=== PATIENT | female | born 1980 | race Caucasian/White ===

== ENCOUNTER 2016-05-02 16:55 | Emergency (ER) | payer SELFPAY ==
--- NOTE | 2016-05-02 17:11 | ER Document Report ---
ED Medical Screen (RME) - General Stated Complaint: CHEST PAIN Time seen by provider: 17:08 Mode of Arrival: Ambulatory Information source: Patient Notes: 36 yo smoker nondiabetic and nonhypertensive non-hyperlipidemic female c/o sharp retrosternal chest pain when she takes a deep breath and it feels like her throat is not it up. Similar symptoms 2 weeks ago but it lasted only one hour. Today the chest pain has been intermittent since 0700, each episode of 5- 10 minutes. Exertion and deep breath makes the pain worse. No pain now. Father had PA in mid 40s. TRAVEL OUTSIDE OF THE [place] IN LAST 30 DAYS: No Physical Exam - Vital signs Vitals: Temp Pulse Resp BP Pulse Ox 97.5 F 83 18 152/94 H 99 05/02/16 17:03 05/02/16 17:03 05/02/16 17:03 05/02/16 17:03 05/02/16 17:03 Course - Vital Signs Vital signs: Temp Pulse Resp BP Pulse Ox 97.5 F 83 18 152/94 H 99 05/02/16 17:03 05/02/16 17:03 05/02/16 17:03 05/02/16 17:03 05/02/16 17:03
[2016-05-02] MEDS ORDERED: ASPIRIN 81 MG TABLET, CHEWABLE PO ONE (17:21)
[2016-05-02 18:00] LABS: ABSOLUTE EOSINOPHILS # (AUTO) 0.1 10^3/uL (0.0-0.6); ABSOLUTE LYMPHOCYTES (AUTO) 3.1 10^3/uL (0.5-4.7); ABSOLUTE MONOCYTES (AUTO) 0.8 10^3/uL (0.1-1.4); ABSOLUTE NEUT (AUTO) 9.4 10^3/uL (1.7-8.2); BASOPHILS % (AUTO) 0.3 % (0-2); EOSINOPHILS % (AUTO) 0.5 % (0-6); HEMATOCRIT 41.7 % (36.0-47.0); HEMOGLOBIN 14.4 g/dL (12.0-15.5); HGB HCT DIFFERENCE 1.5; LYMPHOCYTES % (AUTO) 22.9 % (13-45); MEAN CORPUSCULAR HEMOGLOBIN 31.1 pg (27.0-33.4); MEAN CORPUSCULAR HGB CONC 34.5 g/dL (32.0-36.0); MEAN CORPUSCULAR VOLUME 90 fl (80-97); MONOCYTES % (AUTO) 6.3 % (3-13); RED BLOOD COUNT 4.62 10^6/uL (3.72-5.28); RED CELL DISTRIBUTION WIDTH 12.8 % (11.5-14.0); WHITE BLOOD COUNT 13.4 10^3/uL (4.0-10.5)
--- NOTE | 2016-05-02 18:10 | ER Document Report ---
ED Cardiac - General Chief Complaint: Chest Pain Stated Complaint: CHEST PAIN Time seen by provider: 18:06 Mode of Arrival: Ambulatory Notes: This is a 36-year-old female with a [id number] history that presents today with sternal chest pain. She stated that started at 0700 and went away 10 minutes ago. She states she woke up with the pain sudden onset. Denies nausea vomiting fever or shortness of breath diaphoresis. Admits to some chills. Pain radiates to right arm numbness. She characterizes chest pain as sharp 8 out of 10 worse with movement and breathing. Denies prior myocardial infarction or CVA. 2 weeks ago she states that she has had similar symptoms lasted two hours and went away on its own. She was doing housework at the time. She currently denies chest pain. TRAVEL OUTSIDE OF THE [place] IN LAST 30 DAYS: No - Related Data Allergies/Adverse Reactions: No Known Allergies Allergy (Unverified 05/02/16 17:23) Past Medical History - General Information source: Patient - Social History Smoking Status: Current Every Day Smoker Family History: None Patient has suicidal ideation: No Patient has homicidal ideation: No Review of Systems - Review of Systems Constitutional: denies: Chills, Fever EENT: denies: Blurred vision Cardiovascular: See HPI Respiratory: denies: Cough Gastrointestinal: denies: Abdominal pain, Diarrhea Musculoskeletal: denies: Back pain Physical Exam - Vital signs Vitals: Temp Pulse Resp BP Pulse Ox 97.5 F 83 18 152/94 H 99 05/02/16 17:03 05/02/16 17:03 05/02/16 17:03 05/02/16 17:03 05/02/16 17:03 - General General appearance: Appears well In distress: None - HEENT Head: Normocephalic, Atraumatic Eyes: Normal - Respiratory Respiratory status: No respiratory distress Chest status: Tender - Patient had reproducible pain mid sternum to mild palpation. Breath sounds: Normal. No: Rales, Rhonchi, Stridor, Wheezing - Cardiovascular Rhythm: Regular Heart sounds: Normal auscultation - Abdominal Inspection: Normal Distension: No distension Tenderness: Nontender - Extremities General upper extremity: Normal inspection General lower extremity: Normal inspection - Neurological Cognition: Normal. No: Confused - Psychological Associated symptoms: Normal affect, Normal mood - Skin Skin Temperature: Warm Skin Moisture: Dry Skin Color: Normal Course - Re-evaluation Re-evalutation: 05/02/16 19:40 Dr. Stevens at [facility] was contacted. He advised to put the patient on Plavix 250 mg by mouth now. Patient's vital signs are stable she denies chest pain shortness of breath nausea vomiting. She states that she feels fine. 05/02/16 20:08 Blood pressure is 130/82 pulse of 73 O2 sat on nasal cannula 98%. Currently asymptomatic denies all pain. 05/02/16 20:48 Transport has arrived. Blood pressure is 138/96 pulse of 72. Patient speaking in full sentences Patient denies all symptoms. 05/02/16 22:22 Dr. Stevens advised me to monitor the patient since her troponin levels were downtrending. Troponins were significantly elevated on first draw and on second draw was much lower. Dr. Costa did not believe that the first troponin level was accurate. By the time of this conversation with Dr. Stevens the patient had already been transported out of the hospital. At time of transport the patient was asymptomatic. She stated that she felt good and had no pain. - Vital Signs Vital signs: Temp Pulse Resp BP Pulse Ox 97.5 F 83 21 H 149/93 H 99 05/02/16 17:03 05/02/16 17:03 05/02/16 20:00 05/02/16 20:00 05/02/16 20:00 - Laboratory Result Diagrams: 05/02/16 17:47 05/02/16 17:47 Laboratory results interpreted by me: 05/02/16 05/02/16 05/02/16 17:47 17:47 17:47 WBC 13.4 H Absolute Neutrophils 9.4 H AST 42 H CK-MB (CK-2) 9.71 H Discharge - Discharge Clinical Impression: Non-ST elevation (NSTEMI) myocardial infarction Condition: Stable Disposition: [facility] Admitting Provider: Dr. Stevens
[2016-05-02 18:22] LABS: ALANINE AMINOTRANSFERASE 22 U/L (9-52); ALBUMIN 3.9 g/dL (3.5-5.0); ALKALINE PHOSPHATASE 96 U/L (38-126); ANION GAP 11 (5-19); ASPARTATE AMINO TRANSFERASE 42 U/L (14-36); BILIRUBIN,TOTAL 0.3 mg/dL (0.2-1.3); BLOOD UREA NITROGEN 8 mg/dL (7-20); CALCIUM 9.6 mg/dL (8.4-10.2); CARBON DIOXIDE 25 mmol/L (22-30); CHLORIDE 105 mmol/L (98-107); CREATINE KINASE 110 U/L (30-135); CREATININE RESULT 0.64 mg/dL (0.52-1.25); GLUCOSE 93 mg/dL (75-110); SODIUM 140.7 mmol/L (137-145); TOTAL PROTEIN 7.1 g/dL (6.3-8.2)
[2016-05-02 18:32] LABS: CREATINE KINASE MB 9.71 ng/mL (<4.55)
[2016-05-02 18:37] LABS: TROPONIN I 2.59 ng/mL
[2016-05-02] MEDS ORDERED: CLOPIDOGREL BISULFATE 300 MG TABLET PO ONE (19:25)
[2016-05-02 19:31] VITALS: BP 149/93
--- NOTE | 2016-05-03 13:43 | EKG REPORT ---
SEVERITY:- ABNORMAL ECG - SINUS RHYTHM NONSPECIFIC T ABNORMALITIES, LATERAL LEADS : Confirmed by: Shaila Chang MD 03-May-2016 13:41:52
== END 2016-05-02 20:00 | disposition short-term general hospital (02) ==
LOC: ER 16:55
DX: I21.4 Non-ST elevation (NSTEMI) myocardial infarction (principal); R07.9 Chest pain, unspecified; R68.83 Chills (without fever); F17.200 Nicotine dependence, unspecified, uncomplicated; Z79.01 Long term (current) use of anticoagulants
CPT/HCPCS: 93005; 99285; 36415; 82553; 82550; 85025; 80053; 84484; 71010; 93010; J3490

== ENCOUNTER → 2019-09-17 | Outpatient (CLI) | payer SELFPAY ==
[2019-09-17 09:59] LABS: ALBUMIN 4.5 g/dL (3.5-5.0); ALKALINE PHOSPHATASE 94 U/L (38-126); ANION GAP 9 (5-19); ASPARTATE AMINO TRANSFERASE 25 U/L (14-36); BILIRUBIN,TOTAL 0.5 mg/dL (0.2-1.3); BLOOD UREA NITROGEN 12 mg/dL (7-20); CALCIUM 9.8 mg/dL (8.4-10.2); CARBON DIOXIDE 23 mmol/L (22-30); CHLORIDE 105 mmol/L (98-107); CHOLESTEROL 243.01 mg/dL (0-200); GLUCOSE 99 mg/dL (75-110); POTASSIUM 4.7 mmol/L (3.6-5.0); TRIGLYCERIDES 208 mg/dL (<150)
[2019-09-17 10:12] LABS: DIRECT LDL 179 mg/dL (<100)
[2019-09-17 10:15] LABS: VLDL CHOLESTEROL 41.6 mg/dL (10-31)
[2019-09-17 10:19] LABS: CREATINE KINASE MB 0.49 ng/mL (<4.55)
[2019-09-17 10:21] LABS: TROPONIN I < 0.012 ng/mL
--- NOTE | 2019-09-17 12:06 | RADIOLOGY REPORT (SQ) ---
EXAM DESCRIPTION: CHEST PA/LATERAL IMAGES COMPLETED DATE/TIME: 09/17/2019 9:25 am REASON FOR STUDY: NICOTINE DEPENDENCE, CIGARETTES, UNCOMPLICATED COMPARISON: AP view of the chest from 05/02/2016. EXAM PARAMETERS: NUMBER OF VIEWS: Two views. TECHNIQUE: PA and lateral views of the chest were obtained. RADIATION DOSE: NA. LIMITATIONS: None. FINDINGS: LUNGS AND PLEURA: No consolidation, pleural effusion or pneumothorax. MEDIASTINUM AND HILAR STRUCTURES: No mediastinal or hilar contour abnormality. HEART AND VASCULAR STRUCTURES: The cardiac silhouette and pulmonary vasculature are within normal molina its. BONES: No acute findings. HARDWARE: None in the chest. OTHER: No other finding. IMPRESSION: No acute cardiopulmonary process. TECHNICAL DOCUMENTATION: JOB ID: [id number] 2010 [employer]- All Rights Reserved Reading location - IP/workstation name: [email or web address]
--- NOTE | 2019-09-17 19:36 | EKG REPORT ---
SEVERITY:- NORMAL ECG - SINUS RHYTHM : Confirmed by: Johnson Muñiz MD 17-Sep-2019 19:35:31
== END ==
LOC: OD 08:47
PROVIDERS: ATTEND Nurse Practitioner Family
DX: E78.2 Mixed hyperlipidemia (principal); I10 Essential (primary) hypertension; I20.9 Angina pectoris, unspecified; F17.210 Nicotine dependence, cigarettes, uncomplicated
CPT/HCPCS: 36415; 71046; 80053; 80061; 82553; 84443; 84484; 93005; 93010

== ENCOUNTER 2019-11-18 16:24 | Emergency (ER) | payer MEDICAID ==
[2019-11-18] MEDS ORDERED: ONDANSETRON 4 MG TAB.RAPDIS PO ONE (18:22)
--- NOTE | 2019-11-18 18:27 | ER Document Report ---
ED Medical Screen (RME) - General Chief Complaint: Abdominal Pain Stated Complaint: ABDOMINAL PAIN Time Seen by Provider: 11/18/19 18:15 Primary Care Provider: NEIL JAMES NP [Primary Care Provider] - Follow up as needed Notes: Patient is a 39-year-old female who presents the emergency department with the chief complaint of abdominal pain. Patient states that her pain started yesterday. States that it is in her mid upper abdomen. Patient ended up vomiting once. Patient denies any previous abdominal surgeries. Denies any vaginal discharge. Denies any dysuria. Exam: Tender mid upper abdomen. I have greeted and performed a rapid initial assessment of this patient. A comprehensive ED assessment and evaluation of the patient, analysis of test results and completion of medical decision making process will be conducted by an additional ED providers. TRAVEL OUTSIDE OF THE [place] IN LAST 30 DAYS: No - Related Data Allergies/Adverse Reactions: No Known Allergies Allergy (Unverified 05/02/16 17:23) Home Medications: lisinopril, atorvostatin, metoprolol, nitro Past Medical History - Social History Frequency of alcohol use: None Drug Abuse: None Past Surgical History: Reports: Hx Section, Hx Tubal Ligation Physical Exam - Vital signs Vitals: Temp Pulse Resp BP Pulse Ox 98.3 F 79 20 137/82 H 98 11/18/19 16:42 11/18/19 16:42 11/18/19 16:42 11/18/19 16:42 11/18/19 16:42 Course - Vital Signs Vital signs: Temp Pulse Resp BP Pulse Ox 98.3 F 79 20 137/82 H 98 11/18/19 16:42 11/18/19 16:42 11/18/19 16:42 11/18/19 16:42 11/18/19 16:42 Doctor's Discharge - Discharge Referrals: NEIL JAMES NP [Primary Care Provider] - Follow up as needed
[2019-11-18 19:03] LABS: ABSOLUTE EOSINOPHILS # (AUTO) 0.1 10^3/uL (0.0-0.6); ABSOLUTE LYMPHOCYTES (AUTO) 2.8 10^3/uL (0.5-4.7); ABSOLUTE MONOCYTES (AUTO) 1.2 10^3/uL (0.1-1.4); ABSOLUTE NEUT (AUTO) 14.7 10^3/uL (1.7-8.2); BASOPHILS % (AUTO) 0.2 % (0-2); EOSINOPHILS % (AUTO) 0.5 % (0-6); HEMATOCRIT 45.2 % (36.0-47.0); HEMOGLOBIN 15.2 g/dL (12.0-15.5); MEAN CORPUSCULAR HGB CONC 33.6 g/dL (32.0-36.0); MEAN CORPUSCULAR VOLUME 92 fl (80-97); MONOCYTES % (AUTO) 6.2 % (3-13); PLATELET COUNT 425 10^3/uL (150-450); RED BLOOD COUNT 4.91 10^6/uL (3.72-5.28); RED CELL DISTRIBUTION WIDTH 13.5 % (11.5-14.0); SEGMENTED NEUTROPHILS % (AUTO) 78.1 % (42-78); TOTAL CELLS COUNTED % (AUTO) 100 %; WHITE BLOOD COUNT 18.8 10^3/uL (4.0-10.5)
[2019-11-18 19:04] LABS: APPEARANCE,URINE SLIGHTLY-CLOUDY; BILIRUBIN,URINE NEGATIVE (NEGATIVE); CALCIUM OXALATE CRYSTALS,URINE MANY /HPF; COLOR,URINE YELLOW; GLUCOSE, URINE NEGATIVE (NEGATIVE); KETONES,URINE 20 mg/dL (NEGATIVE); LEUKOCYTE ESTERASE,URINE NEGATIVE (NEGATIVE); NITRITE,URINE NEGATIVE (NEGATIVE); PROTEIN,URINE 30 mg/dL (NEGATIVE); URINE SPECIFIC GRAVITY 1.029
[2019-11-18 19:12] LABS: ALBUMIN 4.7 g/dL (3.5-5.0); ALKALINE PHOSPHATASE 114 U/L (38-126); ANION GAP 9 (5-19); ASPARTATE AMINO TRANSFERASE 19 U/L (14-36); BILIRUBIN,TOTAL 0.5 mg/dL (0.2-1.3); BLOOD UREA NITROGEN 8 mg/dL (7-20); CALCIUM 10.1 mg/dL (8.4-10.2); CARBON DIOXIDE 27 mmol/L (22-30); CHLORIDE 102 mmol/L (98-107); GLUCOSE 117 mg/dL (75-110); POTASSIUM 3.6 mmol/L (3.6-5.0); TOTAL PROTEIN 8.1 g/dL (6.3-8.2)
[2019-11-19] MEDS ORDERED: MORPHINE SULFATE 10 MG/ML INJ IV ONE ×3 (03:38→10:10)
--- NOTE | 2019-11-19 05:12 | ER Document Report ---
ED GI/ - General Mode of Arrival: Ambulatory Information source: Patient TRAVEL OUTSIDE OF THE [place] IN LAST 30 DAYS: No - Related Data Home Medications: lisinopril, atorvostatin, metoprolol, nitro <MANJEET LOPEZ - Last Filed: 11/19/19 07:56> <JAMIEJAMISON - Last Filed: 11/19/19 10:03> - General Chief Complaint: Abdominal Pain Stated Complaint: ABDOMINAL PAIN Time Seen by Provider: 11/18/19 18:15 Primary Care Provider: NEIL JAMES, [employer] [NURSE PRACTITIONER] - Follow up as needed Notes: 39-year-old female patient presents emergency department chief complaint of abdominal pain. Patient reports pain started yesterday. She reports it is in her mid to upper abdomen. She reports she has nausea and vomited one time yesterday and had two episodes of diarrhea. She has not vomited today. She denies any history of any abdominal surgeries. Denies urinary frequency or abnormal vaginal discharge. (MANJEET LOPEZ) - Related Data Allergies/Adverse Reactions: No Known Allergies Allergy (Unverified 05/02/16 17:23) Past Medical History - General Information source: Patient - Social History Smoking Status: Current Every Day Smoker Frequency of alcohol use: None Drug Abuse: None Family History: None - Past Medical History Cardiac Medical History: Reports: Hx Heart Attack - 2017 Past Surgical History: Reports: Hx Section, Hx Tubal Ligation <MANJEET LOPEZ - Last Filed: 11/19/19 07:56> Review of Systems - Review of Systems Constitutional: denies: Chills, Fever EENT: No symptoms reported Cardiovascular: No symptoms reported Gastrointestinal: Abdominal pain, Diarrhea, Nausea, Vomiting Genitourinary: No symptoms reported Female Genitourinary: No symptoms reported Musculoskeletal: No symptoms reported Skin: No symptoms reported Hematologic/Lymphatic: No symptoms reported Neurological/Psychological: No symptoms reported <MANJEET LOPEZ - Last Filed: 11/19/19 07:56> Physical Exam <MANJEET LOPEZ - Last Filed: 11/19/19 07:56> - Vital signs Vitals: Temp Pulse Resp BP Pulse Ox 98.3 F 79 20 137/82 H 98 11/18/19 16:42 11/18/19 16:42 11/18/19 16:42 11/18/19 16:42 11/18/19 16:42 - Notes Notes: PHYSICAL EXAMINATION: GENERAL: Well-appearing, well-nourished and in no acute distress. HEAD: Atraumatic, normocephalic. EYES: Pupils equal round and reactive to light, extraocular movements intact, conjunctiva are normal. ENT: Nares patent, oropharynx clear without exudates. Moist mucous membranes. NECK: Normal range of motion, supple without lymphadenopathy LUNGS: Breath sounds clear to auscultation bilaterally and equal. No wheezes rales or rhonchi. HEART: Regular rate and rhythm without murmurs ABDOMEN: Soft, nondistended abdomen. Mild tenderness in the periumbilical and epigastric region. Female : deferred Musculoskeletal: Normal range of motion, no pitting or edema. No cyanosis. NEUROLOGICAL: Cranial nerves grossly intact. Normal speech, normal gait. Normal sensory, motor exams PSYCH: Normal mood, normal affect. SKIN: Warm, Dry, normal turgor, no rashes or lesions noted. (MANJEET LOPEZ) Course - Laboratory Result Diagrams: 11/18/19 18:26 11/18/19 18:26 <MANJEET LOPEZ - Last Filed: 11/19/19 07:56> - Laboratory Result Diagrams: 11/19/19 08:41 11/18/19 18:26 - Diagnostic Test Radiology reviewed: Reports reviewed <JAMISON QUICK - Last Filed: 11/19/19 10:03> - Re-evaluation Re-evalutation: Laboratory 11/18/19 11/18/19 11/18/19 18:26 18:26 18:35 WBC 18.8 H RBC 4.91 Hgb 15.2 Hct 45.2 MCV 92 MCH 31.0 MCHC 33.6 RDW 13.5 Plt Count 425 Lymph % (Auto) 15.0 Piute % (Auto) 6.2 Eos % (Auto) 0.5 Baso % (Auto) 0.2 Absolute Neuts (auto) 14.7 H Absolute Lymphs (auto) 2.8 Absolute Monos (auto) 1.2 Absolute Eos (auto) 0.1 Absolute Basos (auto) 0.0 Seg Neutrophils % 78.1 H Sodium 138.3 Potassium 3.6 Chloride 102 Carbon Dioxide 27 Anion Gap 9 BUN 8 Creatinine 0.71 Est GFR ( Amer) > 60 Est GFR (MDRD) Non-Af > 60 Glucose 117 H Lactic Acid Calcium 10.1 Total Bilirubin 0.5 Direct Bilirubin 0.0 Neonat Total Bilirubin Not Reportable Neonat Direct Bilirubin Not Reportable Neonat Indirect Bili Not Reportable AST 19 ALT 13 Alkaline Phosphatase 114 Total Protein 8.1 Albumin 4.7 Lipase 92.1 Urine Color YELLOW Urine Appearance SLIGHTLY-CLOUDY Urine pH 5.0 Ur Specific [place] 1.029 Urine Protein 30 H Urine Glucose (UA) NEGATIVE Urine Ketones 20 H Urine Blood SMALL H Urine Nitrite NEGATIVE Urine Bilirubin NEGATIVE Urine Urobilinogen 2.0 H Ur Leukocyte Esterase NEGATIVE Urine WBC (Auto) 6 Urine RBC (Auto) 11 Squamous Epi Cells Auto 6 Calcium Oxalate Cr Auto MANY Urine Mucus (Auto) MANY Urine Ascorbic Acid NEGATIVE Urine HCG, Qual NEGATIVE 11/19/19 05:38 WBC RBC Hgb Hct MCV MCH MCHC RDW Plt Count Lymph % (Auto) Pi[place] % (Auto) Eos % (Auto) Baso % (Auto) Absolute Neuts (auto) Absolute Lymphs (auto) Absolute Monos (auto) Absolute Eos (auto) Absolute Basos (auto) Seg Neutrophils % Sodium Potassium Chloride Carbon Dioxide Anion Gap BUN Creatinine Est GFR ( Amer) Est GFR (MDRD) Non-Af Glucose Lactic Acid 0.7 Calcium Total Bilirubin Direct Bilirubin Neonat Total Bilirubin Neonat Direct Bilirubin Neonat Indirect Bili AST ALT Alkaline Phosphatase Total Protein Albumin Lipase Urine Color Urine Appearance Urine pH Ur Specific [place] Urine Protein Urine Glucose (UA) Urine Ketones Urine Blood Urine Nitrite Urine Bilirubin Urine Urobilinogen Ur Leukocyte Esterase Urine WBC (Auto) Urine RBC (Auto) Squamous Epi Cells Auto Calcium Oxalate Cr Auto Urine Mucus (Auto) Urine Ascorbic Acid Urine HCG, Qual Abdomen/Pelvis CT 11/19/19 03:39 IMPRESSION: 1. Clot or thrombus within the proximal SMA that does produce a greater than 70% stenosis of the proximal SMA and this could be thrombotic or embolic. Distally this appears to protrude into the lumen and could be unstable. Recommend vascular surgery follow-up. This case was discussed by myself by phone with Dr. Lopez on 11/19/2019 at 5:11 AM eastern time. 2. 7.7 cm simple left ovarian cyst, recommend follow-up pelvic MRI with contrast or surgical evaluation. This was also discussed by myself by phone with Dr. Lopez on the same phone call as above. Patient reevaluated. She states her pain has subsided after administration of medications here in the emergency department. I discussed the case with my att ending physician, Dr. Anand who advises obtaining a lactic acid and an EKG. Lactic acid is unremarkable. EKG shows a sinus bradycardia, rate 43, normal axis, normal intervals, no ST segment elevations or depressions to suggest ischemia. This is unchanged from previous EKG on file from 09/17/2019. Case was discussed with attending physician, Dr. Smith, he advises discussing case with vascular team at a tertiary facility. 11/19/19 07:08 Call placed to [facility], they are at capacity and will not accept any patient transfers for general adult. Call placed to [facility] at 0725, awaiting phone call back from the vascular team. Images sent via power [employer]. 11/19/19 07:56 Spoke with vascular surgeon, Dr. Keyshawn Robles at [facility]. He would like the patient to be transferred ED to ED if possible in hopes of having general surgery and vascular surgery consult on arrival. He is concerned for possible mesenteric ischemia. I spoke with the attending physician in the emergency department at [facility] on the reported line and he states that they are at capacity in their emergency department holding multiple admissions and they are unable to accept any transfers at this time. The [facility] transfer center will let vascular surgery te am know that the patient is unable to be transported there. We will continue to search for another tertiary facility that has bed availability. The patient remained stable at this time. She continues to be pain-free. Bedside handoff given to Kenrick Quick NP who will continue to attempt to get patie nt transferred. (MANJEET LOPEZ) 11/19/19 08:20 Call placed to [facility] transfer center for consultation with vascular surgeon. 11/19/19 08:[address] Howard Roland is on for vascular at [facility], discussed patient's CT imaging report. advises transfer ER to ER for further evaluation given the fact that patient also has incidental large ovarian cyst. Consulted with ER physician Dr. Golden who does agree to accept ER to ER transfer at this time, if patient requires admission, Dr. Roland does state that patient could be placed on a vascular floor as they do not currently have any medical beds. 11/19/19 09:24 Patient requesting additional pain medication, patient complains of upper abdominal tenderness at this time. Patient's vital signs continue stable, patient continues bradycardic although is on a beta-wesley. Patient updated regarding transfer status and is agreeable with transfer plan of care. 11/19/19 10:02 Transport crew is here for patient, patient stable for transfer. (JAMISON QUICK) - Vital Signs Vital signs: Temp Pulse Resp BP Pulse Ox 98.2 F 42 L 20 147/90 H 99 11/19/19 09:36 11/19/19 07:39 11/19/19 09:36 11/19/19 09:36 11/19/19 09:36 - Laboratory Laboratory results interpreted by me: 11/18/19 11/18/19 11/18/19 18:26 18:26 18:35 WBC 18.8 H Absolute Neuts (auto) 14.7 H Seg Neutrophils % 78.1 H Glucose 117 H Urine Protein 30 H Urine Ketones 20 H Urine Blood SMALL H Urine Urobilinogen 2.0 H Ur Leukocyte Esterase 11/19/19 11/19/19 08:41 08:51 WBC 15.3 H Absolute Neuts (auto) 9.5 H Seg Neutrophils % Glucose Urine Protein 30 H Urine Ketones TRACE H Urine Blood Urine Urobilinogen Ur Leukocyte Esterase SMALL H 11/19/19 10:02 Labs- All tests 24 hr 11/18/19 11/18/19 11/18/19 18:26 18:26 18:35 WBC 18.8 H RBC 4.91 Hgb 15.2 Hct 45.2 MCV 92 MCH 31.0 MCHC 33.6 RDW 13.5 Plt Count 425 Lymph % (Auto) 15.0 [place] % (Auto) 6.2 Eos % (Auto) 0.5 Baso % (Auto) 0.2 Absolute Neuts (auto) 14.7 H Absolute Lymphs (auto) 2.8 Absolute Monos (auto) 1.2 Absolute Eos (auto) 0.1 Absolute Basos (auto) 0.0 Seg Neutrophils % 78.1 H PT INR APTT Sodium 138.3 Potassium 3.6 Chloride 102 Carbon Dioxide 27 Anion Gap 9 BUN 8 Creatinine 0.71 Est GFR ( Amer) > 60 Est GFR (MDRD) Non-Af > 60 Glucose 117 H Lactic Acid Calcium 10.1 Total Bilirubin 0.5 Direct Bilirubin 0.0 Neonat Total Bilirubin Not Reportable Neonat Direct Bilirubin Not Reportable Neonat Indirect Bili Not Reportable AST 19 ALT 13 Alkaline Phosphatase 114 Total Protein 8.1 Albumin 4.7 Lipase 92.1 Urine Color YELLOW Urine Appearance SLIGHTLY-CLOUDY Urine pH 5.0 Ur Specific [place] 1.029 Urine Protein 30 H Urine Glucose (UA) NEGATIVE Urine Ketones 20 H Urine Blood SMALL H Urine Nitrite NEGATIVE Urine Bilirubin NEGATIVE Urine Urobilinogen 2.0 H Ur Leukocyte Esterase NEGATIVE Urine WBC (Auto) 6 Urine RBC (Auto) 11 Urine Bacteria (Auto) Squamous Epi Cells Auto 6 Calcium Oxalate Cr Auto MANY Urine Mucus (Auto) MANY Urine Ascorbic Acid NEGATIVE Urine HCG, Qual NEGATIVE 11/19/19 11/19/19 11/19/19 05:38 08:41 08:41 WBC 15.3 H RBC 4.52 Hgb 14.0 Hct 41.4 MCV 92 MCH 30.9 MCHC 33.8 RDW 13.3 Plt Count 348 Lymph % (Auto) 28.6 [place] % (Auto) 7.8 Eos % (Auto) 0.8 Baso % (Auto) 0.8 Absolute Neuts (auto) 9.5 H Absolute Lymphs (auto) 4.4 Absolute Monos (auto) 1.2 Absolute Eos (auto) 0.1 Absolute Basos (auto) 0.1 Seg Neutrophils % 62.0 PT 13.5 INR 1.03 APTT 25.7 Sodium Potassium Chloride Carbon Dioxide Anion Gap BUN Creatinine Est GFR ( Amer) Est GFR (MDRD) Non-Af Glucose Lactic Acid 0.7 Calcium Total Bilirubin Direct Bilirubin Neonat Total Bilirubin Neonat Direct Bilirubin Neonat Indirect Bili AST ALT Alkaline Phosphatase Total Protein Albumin Lipase Urine Color Urine Appearance Urine pH Ur Specific [place] Urine Protein Urine Glucose (UA) Urine Ketones Urine Blood Urine Nitrite Urine Bilirubin Urine Urobilinogen Ur Leukocyte Esterase Urine WBC (Auto) Urine RBC (Auto) Urine Bacteria (Auto) Squamous Epi Cells Auto Calcium Oxalate Cr Auto Urine Mucus (Auto) Urine Ascorbic Acid Urine HCG, Qual 11/19/19 08:51 WBC RBC Hgb Hct MCV MCH MCHC RDW Plt Count Lymph % (Auto) [place] % (Auto) Eos % (Auto) Baso % (Auto) Absolute Neuts (auto) Absolute Lymphs (auto) Absolute Monos (auto) Absolute Eos (auto) Absolute Basos (auto) Seg Neutrophils % PT INR APTT Sodium Potassium Chloride Carbon Dioxide Anion Gap BUN Creatinine Est GFR ( Amer) Est GFR (MDRD) Non-Af Glucose Lactic Acid Calcium Total Bilirubin Direct Bilirubin Neonat Total Bilirubin Neonat Direct Bilirubin Neonat Indirect Bili AST ALT Alkaline Phosphatase Total Protein Albumin Lipase Urine Color YELLOW Urine Appearance SLIGHTLY-CLOUDY Urine pH 6.0 Ur Specific [place] > 1.060 Urine Protein 30 H Urine Glucose (UA) NEGATIVE Urine Ketones TRACE H Urine Blood NEGATIVE Urine Nitrite NEGATIVE Urine Bilirubin NEGATIVE Urine Urobilinogen NEGATIVE Ur Leukocyte Esterase SMALL H Urine WBC (Auto) 16 Urine RBC (Auto) 9 Urine Bacteria (Auto) TRACE Squamous Epi Cells Auto 23 Calcium Oxalate Cr Auto Urine Mucus (Auto) MOD Urine Ascorbic Acid NEGATIVE Urine HCG, Qual (JAMISON QUICK) Discharge <MANJEET LOPEZ - Last Filed: 11/19/19 07:56> <JAMISON QUICK - Last Filed: 11/19/19 10:03> - Discharge Clinical Impression: Superior mesenteric artery thrombosis Abdominal pain Qualifiers: Abdominal location: upper abdomen, unspecified Qualified Code(s): R10.10 - Upper abdominal pain, unspecified Ovarian cyst Qualifiers: Laterality: left Qualified Code(s): N83.202 - Unspecified ovarian cyst, left side Condition: Fair Disposition: [facility] Referrals: NEIL JAMES NP [NURSE PRACTITIONER] - Follow up as needed
--- NOTE | 2019-11-19 05:13 | RADIOLOGY REPORT (SQ) ---
CT abdomen and pelvis with contrast on 11/19/2019 at 4:29 AM CLINICAL INDICATION: Generalized abdominal pain, leukocytosis TECHNIQUE: Multiple axial images are obtained throughout the abdomen and pelvis following the administration of IV contrast, 67 mL of Omnipaque 350contrast was administered intravenously without complication. This exam was performed according to our departmental dose-optimization program, which includes automated exposure control, adjustment of the mA and/or kV according to patient size and/or use of iterative reconstruction technique. Total DLP is 544.91 mGy*cm. COMPARISON: None FINDINGS: Abdomen: There is minimal basilar atelectasis. There is low-density thrombus or embolus within the proximal SMA seen best on axial images 28 and 29 of series 3 and on coronal images 26 through 30 of series 601. This may be thrombotic or embolic as distally this appears to protrude into the lumen and could be unstable. This does produce likely at least 70% stenosis of the proximal SMA. Celiac and STEFFANY appear unremarkable. Solid abdominal organs are unremarkable. There is no abdominal adenopathy. There is no free fluid or free air within the abdomen. The abdominal portion of the GI tract is unremarkable. Pelvis: There is a large 7.7 x 7.2 x 7.1 cm simple left ovarian cyst. Would recommend MRI with IV contrast or surgical evaluation. Pelvic organs otherwise appear unremarkable by CT. No free fluid is noted in the pelvis. There is no pelvic adenopathy. Pelvic portion of the GI tract including the appendix is unremarkable. No acute bony abnormality is noted. IMPRESSION: 1. Clot or thrombus within the proximal SMA that does produce a greater than 70% stenosis of the proximal SMA and this could be thrombotic or embolic. Distally this appears to protrude into the lumen and could be unstable. Recommend vascular surgery follow-up. This case was discussed by myself by phone with Dr. Lopez on 11/19/2019 at 5:11 AM eastern time. 2. 7.7 cm simple left ovarian cyst, recommend follow-up pelvic MRI with contrast or surgical evaluation. This was also discussed by myself by phone with Dr. Lopez on the same phone call as above.
[2019-11-19] MEDS ORDERED: NORMAL SALINE 1000 ML 1,000 ML IV ONE ×2 (08:12)
[2019-11-19] MEDS ORDERED: HEPARIN SODIUM,PORCINE/D5W 25,000 UNIT/250 ML RTUINJ IV PRN (08:13)
[2019-11-19] MEDS ORDERED: HEPARIN SOD (PORCINE) 1,000 UNIT/ML 10 ML VIAL IV ONE (08:13)
--- NOTE | 2019-11-19 08:39 | EKG REPORT ---
SEVERITY:- OTHERWISE NORMAL ECG - SINUS BRADYCARDIA : Confirmed by: Shaila Chang MD 19-Nov-2019 08:38:22
[2019-11-19 08:52] LABS: ABSOLUTE BASOPHILS # (AUTO) 0.1 10^3/uL (0.0-0.2); ABSOLUTE EOSINOPHILS # (AUTO) 0.1 10^3/uL (0.0-0.6); ABSOLUTE LYMPHOCYTES (AUTO) 4.4 10^3/uL (0.5-4.7); ABSOLUTE MONOCYTES (AUTO) 1.2 10^3/uL (0.1-1.4); ABSOLUTE NEUT (AUTO) 9.5 10^3/uL (1.7-8.2); BASOPHILS % (AUTO) 0.8 % (0-2); EOSINOPHILS % (AUTO) 0.8 % (0-6); HEMATOCRIT 41.4 % (36.0-47.0); INTERNATIONAL RATION (INR) 1.03; LYMPHOCYTES % (AUTO) 28.6 % (13-45); MEAN CORPUSCULAR HEMOGLOBIN 30.9 pg (27.0-33.4); MEAN CORPUSCULAR HGB CONC 33.8 g/dL (32.0-36.0); MEAN CORPUSCULAR VOLUME 92 fl (80-97); MONOCYTES % (AUTO) 7.8 % (3-13); PLATELET COUNT 348 10^3/uL (150-450); PROTHROMBIN TIME 13.5 SEC (11.4-15.4); RED BLOOD COUNT 4.52 10^6/uL (3.72-5.28); RED CELL DISTRIBUTION WIDTH 13.3 % (11.5-14.0); TOTAL CELLS COUNTED % (AUTO) 100 %; WHITE BLOOD COUNT 15.3 10^3/uL (4.0-10.5)
[2019-11-19 08:53] LABS: PARTIAL THROMBOPLASTIN TIME 25.7 SEC (23.5-35.8)
[2019-11-19 09:29] LABS: APPEARANCE,URINE SLIGHTLY-CLOUDY; BILIRUBIN,URINE NEGATIVE (NEGATIVE); COLOR,URINE YELLOW; GLUCOSE, URINE NEGATIVE (NEGATIVE); KETONES,URINE TRACE mg/dL (NEGATIVE); LEUKOCYTE ESTERASE,URINE SMALL (NEGATIVE); NITRITE,URINE NEGATIVE (NEGATIVE); PROTEIN,URINE 30 mg/dL (NEGATIVE); UROBILINOGEN,URINE NEGATIVE mg/dL (<2.0)
[2019-11-19 09:37] LABS: URINE SPECIFIC GRAVITY > 1.060
[2019-11-19 09:50] VITALS: BP 147/90
[2019-11-19] MEDS ORDERED: HEPARIN SOD (PORCINE) 1,000 UNIT/ML 10 ML VIAL IV PRN (11:16)
== END 2019-11-19 10:15 | disposition short-term general hospital (02) ==
LOC: ER 16:24
DX: K55.069 Acute infarction of intestine, part and extent unspecified (principal); N83.202 Unspecified ovarian cyst, left side; R10.10 Upper abdominal pain, unspecified; R11.2 Nausea with vomiting, unspecified; R19.7 Diarrhea, unspecified; F17.200 Nicotine dependence, unspecified, uncomplicated; I25.2 Old myocardial infarction
CPT/HCPCS: 93005; 96376; 99285; 96361; 96375; 96365; 36415; 83605; 83690; 85025; 85610; 85730; 81025; 80053; 81001; 74177; 93010; J1644 ×2; S0119; J2270; J7030